=== PATIENT | female | born 1970 | race Caucasian/White ===

== ENCOUNTER 2018-07-06 06:40 | Day surgery (SDC) | payer BC, OTHER ==
[~2018-07-06 06:40] MED LIST: CEFAZOLIN 1 GM/D5W RTU 1 GM/50 ML RTUPB IV PRN
[2018-07-06] MEDS ORDERED: MIDAZOLAM 2 MG/2 ML INJ ONE (06:50)
[2018-07-06] MEDS ORDERED: FENTANYL CITRATE INJ/PF 100 MCG/2 ML AMPUL ONE (06:50)
[2018-07-06] MEDS ORDERED: LIDOCAINE 1% INJ-PF (10 MG/ML) 30 ML SDV ONE (06:51)
[2018-07-06] MEDS ORDERED: PROPOFOL INJ 200 MG/20 ML VIAL IV ONE (06:51)
[2018-07-06] MEDS ORDERED: LIDOCAINE 2% INJ-PF (20 MG/ML) 10 ML AMPUL ONE (06:56)
[2018-07-06] MEDS ORDERED: ONDANSETRON HCL INJ/PF 4 MG/2 ML SDV ONE (07:12)
[2018-07-06] MEDS ORDERED: BUPIVACAINE HCL 0.5 % INJ/PF 30 ML SDV ONE (07:19)
[2018-07-06] MEDS ORDERED: POLYMYXIN B SULFATE INJ 500000 UNIT VIAL ONE (07:19)
[2018-07-06] MEDS ORDERED: LIDOCAINE 2% INJ (20 MG/ML) 20 ML MDV ONE (07:20)
[2018-07-06] MEDS ORDERED: NORMAL SALINE INJ/PF 0.9% 10 ML SDV ONE (07:20)
[2018-07-06] MEDS ORDERED: BACITRACIN INJ 50,000 UNIT VIAL ONE (07:20)
[2018-07-06] MEDS ORDERED: DEXAMETHASONE SOD PHOSPHATE INJ 4 MG/1 ML VIAL ONE (07:32)
[2018-07-06] MEDS: BUPIVACAINE INJ/PF LIPOSOME/PF 266 MG/20 ML SDV ONE ×2 (09:00→09:07)
--- NOTE | 2018-07-06 10:21 | SURGICARE DISCHARGE SUMMARY E ---
[facility] Discharge Summary NAME: SALEEM GARCIA AGE: 47Y ADMITTED: 07/06/2018 DISCHARGED: 07/06/2018 SURGICAL PROCEDURE: A simple bunionectomy with repair of partially torn extensor hallucis longus tendon, left foot. POSTOPERATIVE DIAGNOSIS: Simple bunion with ruptured tendon, left foot. SURGEON: Trinity Cuello DPM FRIT MIXER: Magdy Gonzalez DPM HOSPITAL COURSE: The patient was admitted to [facility] with a chief complaint of a bunion and pain along the top of her first metatarsal of her left foot. The patient underwent conservative therapy with no cessation of her symptoms and desired to have the problem surgically corrected. The patient underwent the above surgical procedure without any complications and was transferred to the recovery room. The patient was discharged with a surgical shoe and ice pack, postoperative instructions, and postoperative prescriptions for hydrocodone/acetaminophen 7.5/325 mg, #40, Phenergan 25 mg, #20, and cephalexin 500 mg, #4. She was given a followup appointment in the doctor's office in 1 week, and patient was discharged from [facility]. DICTATING PHYSICIAN: TRINITY CUELLO D.P.M. [id number] PHY#: [id number] ID: [id number] JOB#: [id number] ACCT: [id number] cc:TRINITY CUELLO DPM >
--- NOTE | 2018-07-06 10:56 | [facility]ARE OPERATIVE REPORT E ---
[facility] Operative Report NAME: SALEEM GARCIA AGE: 47Y DATE OF SURGERY: 07/06/2018 ROOM: PREOPERATIVE DIAGNOSIS: BUNION DEFORMITY, LEFT FOOT. POSTOPERATIVE DIAGNOSIS: BUNION DEFORMITY WITH PARTIAL TEAR EHL TENDON, LEFT FOOT. OPERATION: Simple bunionectomy with repair of EHL tendon, left foot. SURGEON: TRINITY MANUEL DPM [employer]IC[employer]ED [employer] AGENTS: LOU CLEMONS DPM ANESTHESIA: Intravenous Regional and local anesthesia. PROCEDURE: Following induction of IV regional and local anesthesia, the left foot and leg was prepped and draped in the usual sterile manner. A pneumatic tourniquet was placed around the left ankle and inflated to 250 mmHg after exsanguination of the limb via Esmarch bandage. The following surgical procedure was then performed. Simple bunionectomy, with repair or partially torn extensor hallucis longus tendon, left foot. Attention was directed to the first metatarsophalangeal joint of the left foot where an approximately 5 cm dorsal linear incision was made over the first metatarsophalangeal joint. The incision was deepened via sharp and blunt dissection. All bleeders were clamped and bovied as necessary for purposes of hemostasis. A capsular incision was made in the same manner as the original skin incision and was made medial to the extensor hallucis longus tendon. The capsule was then reflected medially and laterally from the bone. This brought into view the hypertrophied medial eminence of the first metatarsal head. Utilizing a [place] sagittal saw, the hypertrophied medial eminence was osteotomized parallel to the long axis of the bone and removed in toto from the wound. There was also an exostosis at the dorsal aspect of the first metatarsal head and this was removed with a combination of a Micki sagittal saw and a rongeur. Attention was directed to the first interspace, where the transverse adductor tendon was identified and isolated and sharply incised. Attention was then directed back to the extensor hallucis longus tendon. While removing the tendon sheath to perform a tendon lengthening it was noted that approximately 3 cm of the tendon was yellow in appearance and that it was partially torn longitudinally along the length of the tendon. It was determined that there had been some type of injury to the tendon and that this needed to be repaired. The capsularis tendon was then identified and isolated and sharply incised as most proximal as possible. This proximal end was then sutured to the good proximal aspect of the extensor hallucis longus tendon, utilizing 3-0 FiberWire. The extensor hallucis longus tendon was then debrided of all yellowed and fibrous tissue and then the capsularis tendon was sutured into the extensor hallucis longus tendon utilizing a running subcuticular suture of 3-0 FiberWire. The area was then flushed with copious amounts of antibacterial saline solution until no bony debridement was noted in the wound. Bone wax was than applied to the dorsal aspect and medial aspects of the first metatarsal head. The capsule was then coaptated and maintained utilizing simple interrupted sutures of 3-0 Vicryl. The extensor hallucis longus tendon was then tacked medially utilizing simple interrupted sutures of 3-0 Vicryl. The subcutaneous tissue was then coaptated and maintained utilizing simple interrupted sutures of 4-0 Vicryl. The surgical incision and surgical site were then injected with 20 mL of Exparel. The skin was then coaptated and maintained utilizing a running subcuticular suture of 5-0 Vicryl. The foot was then cleansed with an alcohol foam. Benzoin was applied the length of the incision and Steri-Strips were applied to the incision. A dry sterile dressing was then applied consisting of Nico silk, 4 x 4's, Conform, Kerlix and Coban. The pneumatic tourniquet was released. It was noted that all digits were warm and viable, and the patient was transferred to the recovery room. DICTATING PHYSICIAN: TRINITY MANUEL D.P.M. [id number] MARYY#: [id number] ID: [id number] JOB#: [id number] ACCT: [id number] cc:ANDREA ANGELES
== END 2018-07-06 10:44 | disposition home or self-care (01) ==
LOC: SC 06:40
PROVIDERS: ATTEND Podiatrist Foot Surgery
DX: M21.612 Bunion of left foot (principal); S96.122A Laceration of muscle and tendon of long extensor muscle of toe at ankle and foot level, left foot, initial encounter; X58.XXXA Exposure to other specified factors, initial encounter; M25.775 Osteophyte, left foot; G43.909 Migraine, unspecified, not intractable, without status migrainosus; Z88.2 Allergy status to sulfonamides; Z88.0 Allergy status to penicillin; Z88.8 Allergy status to other drugs, medicaments and biological substances; Z88.5 Allergy status to narcotic agent; Z79.899 Other long term (current) drug therapy
CPT/HCPCS: 28296; 28208; 88304 ×2; J2250; J3490 ×6; J1100; J3010; J2405; J2704; C9290; 1480

== ENCOUNTER 2019-11-23 07:17 | Day surgery (SDC) | payer BC, OTHER ==
[2019-11-23] MEDS ORDERED: LIDOCAINE 2% INJ-PF (20 MG/ML) 10 ML AMPUL ONE (07:48)
[2019-11-23] MEDS ORDERED: PROPOFOL INJ 200 MG/20 ML VIAL IV ONE (07:48)
--- NOTE | 2019-11-23 08:29 | Operative Report ---
Nonrecallable Operative Report DATE OF SURGERY: 11/23/19 PREOPERATIVE DIAGNOSIS: Screening for malignancy POSTOPERATIVE DIAGNOSIS: 1. Colon polyp at 65 cm. 2. Scattered diverticulosis throughout the descending and sigmoid colon. OPERATION: 1. Colonoscopy to the cecum. 2. Hot biopsy of small colon polyp at 65 cm (completely excised). SURGEON: MOHIT MÁRQUEZ ANESTHESIA: LMAC TISSUE REMOVED OR ALTERED: Colon polyp at 65 cm. COMPLICATIONS: None apparent ESTIMATED BLOOD LOSS: Minimal PROCEDURE: Procedure in detail: After informed consent was obtained, the patient was brought to the operating room and laid in the left lateral decubitus position. The endoscope was inserted into the rectum. It was passed up the rectum, sigmoid colon, descending colon, across the transverse colon, down the ascending colon, and into the cecum. The ileocecal valve and appendiceal orifice were identified. The scope was then withdrawn, circumferentially noting the mucosa. The prep was excellent. The scope was withdrawn past the ascending colon, transverse colon, and down the descending colon. The descending and sigmoid colon, a few small scattered diverticula were identified. There is no sign of active diverticulitis. At 65 cm, a diminutive polyp was identified. The polyp was removed in its entirety via hot biopsy forcep. The scope was withdrawn down the remainder of the sigmoid colon and into the rectum. A retroflexion maneuver was performed inside the rectum, noting no significant internal hemorrhoids. The scope was then straightened, air was suctioned from the rectum, the scope was removed, and the procedure was concluded. All sponge, instrument, needle counts were correct x2. Condition: Stable.
--- NOTE | 2019-11-23 08:30 | Discharge Summary ---
Discharge Summary (SDC) - Discharge Final Diagnosis: Colon polyp, diverticulosis Date of Surgery: 11/23/19 Discharge Date: 11/23/19 Condition: Stable Treatment or Instructions: Discharge home. Diet as tolerated. Activity: Nonstrenuous. Follow-up with me at [facility] in 2 weeks. Referrals: NUVIA MALHOTRA MD [Primary Care Provider] - Discharge Diet: As Tolerated Respiratory Treatments at Home: Deep Breathing/Coughing, Incentive Spirometer Discharge Activity: Activity As Tolerated, Balance Activity w/Rest Home Care Assistance: None Needed Report the Following to Your Physician Immediately: Shortness of Breath, Nausea, Vomiting, Increase in Pain, Unusual Bleeding, Redness
[2019-11-23 09:36] VITALS: BP 99/59
== END 2019-11-23 09:05 | disposition home or self-care (01) ==
LOC: END 07:17
PROVIDERS: ATTEND Surgery
DX: Z12.11 Encounter for screening for malignant neoplasm of colon (principal); D12.4 Benign neoplasm of descending colon; D12.5 Benign neoplasm of sigmoid colon; K57.30 Diverticulosis of large intestine without perforation or abscess without bleeding; Z88.0 Allergy status to penicillin; Z88.2 Allergy status to sulfonamides; Z79.899 Other long term (current) drug therapy
CPT/HCPCS: 45384; 88305 ×2; 00812; J2704; J3490; 812